=== PATIENT | female | born 1950 | race Caucasian/White ===

== ENCOUNTER 2023-07-21 14:15 | Emergency (ER) | payer OTHER, BC ==
[2023-07-21] MEDS ORDERED: SODIUM CHLORIDE 0.9% 1000 ML INFUS.BAG IV ONE (14:35)
[2023-07-21] MEDS ORDERED: ONDANSETRON 4 MG/2 ML VIAL IVPUSH ONE (14:35)
[2023-07-21 14:44] VITALS: BMI 19.2
[2023-07-21] MEDS ORDERED: MECLIZINE HCL 25 MG TABLET (FP) PO ONE (15:44)
[2023-07-21] MEDS ORDERED: MECLIZINE HCL 25 MG TABLET (FP) ONE (15:51)
[2023-07-21 16:02] LABS: HEMATOCRIT 40.9 % (32.4-45.2); HEMOGLOBIN 13.6 G/dL (10.7-15.3); MCH 29.2 pg (25.7-33.7); MCHC 33.2 g/dl (32.0-36.0); MEAN PLT VOLUME 8.7 fl (7.5-11.1); PLATELET COUNT 204.7 10^3/uL (134-434); RBC 4.65 10^6/uL (3.60-5.2); RDW 14.7 % (11.6-15.6); WHITE BLOOD COUNT 6.5 10^3/uL (4.0-10.8)
[2023-07-21 16:17] LABS: ALBUMIN 4.4 g/dl (3.4-5.0); BILIRUBIN,TOTAL 0.6 mg/dl (0.2-1); CALCIUM 9.8 mg/dl (8.5-10.1); CREATININE 0.7 mg/dl (0.6-1.3); POTASSIUM 3.9 mmol/L (3.5-5.1); TOT PROT 6.9 g/dl (6.4-8.2)
[2023-07-21 17:27] VITALS: BP 108/49; PULSE 72; RESP 17; TEMP 99.3
== END 2023-07-21 17:45 | disposition home or self-care (01) ==
LOC: FER 14:15
PROC: 3E033NZ Introduction of Analgesics, Hypnotics, Sedatives into Peripheral Vein, Percutaneous Approach (ICD-10-PCS; principal; 2023-07-21)
DX: R42 Dizziness and giddiness (principal); R11.2 Nausea with vomiting, unspecified
CPT/HCPCS: 36415; 70450-TC; 71046-TC-FY; 80053; 84484; 85027; 93005; 99285-25